=== PATIENT | male | born 1980 | race Caucasian/White ===

== ENCOUNTER 2018-10-06 20:42 | Emergency (ER) | payer OTHER ==
[2018-10-06] MEDS ORDERED: Lidocaine 1% (PF) 30 ML VIAL ONE (20:53)
[2018-10-06] MEDS ORDERED: Bacitracin Zinc 1 Packet ONE (21:51)
== END 2018-10-06 21:56 | disposition home or self-care (01) ==
LOC: ERS 20:42
DX: S01.311A Laceration without foreign body of right ear, initial encounter (principal); W22.8XXA Striking against or struck by other objects, initial encounter
CPT/HCPCS: 12013; J2001